=== PATIENT | male | born 1980 ===

== ENCOUNTER 2018-06-25 20:36 | Inpatient (IN) | payer OTHER ==
[2018-06-25 21:58] LABS: BASO # 0.1 K/uL (0.0-0.2); BASO % 0.8 % (0.0-2.0); EOS % 0.3 % (0.0-4.0); LYMPH # 2.8 K/uL (1.0-4.3); LYMPH % 30.7 % (20.0-40.0); MEAN CELL VOLUME 90.1 fL (80.0-94.0); MEAN CORPUSCULAR HGB CONC 35.6 g/dL (33.0-37.0); MEAN PLATELET VOLUME 9.2 fL (7.2-11.7); MONO # 0.5 K/uL (0.0-0.8); MONO % 5.2 % (0.0-10.0); NEUT # 5.7 K/uL (1.8-7.0); NRBC % 0.1 % (0.0-2.0); RBC 4.69 Mil/uL (4.40-5.90); RED CELL DISTRIBUTION WIDTH 12.9 % (11.5-14.5)
[2018-06-25 22:05] LABS: URINE BILIRUBIN NEGATIVE (NEGATIVE); URINE BLOOD NEGATIVE (NEGATIVE); URINE CLARITY Clear (Clear); URINE COLOR Amber (YELLOW); URINE GLUCOSE (UA) NORMAL (Normal); URINE LEUKOCYTE ESTERASE NEG Leu/uL (Negative); URINE PROTEIN NEGATIVE (NEGATIVE)
[2018-06-25 22:13] LABS: ALB/GLOB RATIO 1.2 (1.0-2.1); ALBUMIN 4.5 g/dL (3.5-5.0); ALT/SGPT 709 U/L (21-72); AST/SGOT 479 U/L (17-59); BLOOD UREA NITROGEN 11 mg/dL (9-20); CALCIUM 8.7 mg/dl (8.6-10.4); GFR NON-AFRICAN AMERICAN > 60
[2018-06-25 22:15] LABS: BARBITURATES, UR NEGATIVE (NEGATIVE); BENZODIAZEPINES, UR NEGATIVE (NEGATIVE); OPIATES, UR NEGATIVE (NEGATIVE); PHENCYCLIDINE, UR NEGATIVE (NEGATIVE)
--- NOTE | 2018-06-25 23:15 | C.PDOC ---
History Of Present Illness 37 year old male presents to the emergency department requesting detox from alcohol. Patient states that he last drank yesterday. He has no physical complaints at this time. Chief Complaint (Nursing): Substance Abuse History Per: Patient History/Exam Limitations: no limitations Onset/Duration Of Symptoms: Hrs Current Symptoms Are (Timing): Still Present Suicide/Self Injury Attempted (Context): None Modifying Factor(s): Alcohol Associated Symptoms: denies: Suicidal Thoughts, Suicidal Plan Past Medical History Reviewed: Historical Data, Nursing Documentation, Vital Signs Vital Signs: Last Vital Signs Temp 98.5 F 06/25/18 21:13 Pulse 92 H 06/25/18 21:13 Resp 16 06/25/18 21:13 BP 161/111 H 06/25/18 21:13 Pulse Ox 97 06/25/18 21:13 - Medical History PMH: Anxiety, Depression, HTN Surgical History: No Surg Hx Family History: States: No Known Family Hx - Social History Hx Alcohol Use: Yes Hx Substance Use: No - Immunization History Hx Tetanus Toxoid Vaccination: No Hx Influenza Vaccination: No Hx Pneumococcal Vaccination: No Review Of Systems Except As Marked, All Systems Reviewed And Found Negative. Constitutional: Negative for: Fever, Chills Respiratory: Negative for: Shortness of Breath Gastrointestinal: Negative for: Nausea, Vomiting, Abdominal Pain Physical Exam - Physical Exam Appears: Non-toxic, No Acute Distress Skin: Warm, Dry Head: Atraumatic, Normacephalic Eye(s): bilateral: Normal Inspection, PERRL, EOMI Oral Mucosa: Moist Neck: Normal, Supple Chest: Symmetrical, No Tenderness Cardiovascular: Rhythm Regular, No Murmur Respiratory: No Rales, No Rhonchi, No Wheezing Gastrointestinal/Abdominal: Soft, No Tenderness, No Guarding, No Rebound Neurological/Psych: Oriented x3, Normal Speech, Normal Cognition ED Course And Treatment - Laboratory Results Result Diagrams: 06/25/18 21:53 06/25/18 21:53 O2 Sat by Pulse Oximetry: 97 (RA) Pulse Ox Interpretation: Normal Progress Note: Plan: Alcohol Serum. CMP. Drug Screen. Magnesium. Phosphorus. CBC. Urinalysis. Patient is medically cleared for detox. Disposition - Disposition Disposition Time: 22:00 Condition: STABLE Forms: [employer] (Hungarian) - Clinical Impression Clinical Impression: Alcohol dependence - Scribe Statement The provider has reviewed the documentation as recorded by the Scribe (Kal Canales) Provider Attestation: All medical record entries made by the Scribe were at my direction and perso terrance dictated by me. I have reviewed the chart and agree that the record accurately reflects my personal performance of the history, physical exam, medical decision making, and the department course for this patient. I have also personally directed, reviewed, and agree with the discharge instructions and disposition.
--- NOTE | 2018-06-26 00:54 | PCM.BM ---
<Devendra Shipman - Last Filed: 06/26/18 00:53> Treatment Plan Problems - Problems identified on initial assessmt potential for alcohol withdrawal Date Initiated: 06/26/18 Time Initiated: 00:54 Assessment reference: NA Status: Active Treatment assets and liabiliti Patient Assests: adapts well, educated, self-reliant, ADL independent Patient Liabilities: substance abuse - Milieu Protocol Maintain good personal hygiene: daily Encourage regular showers, daily Remind patient to perform daily oral care, daily Assist patient to perform ADL's Maintain personal safety: every shift Educate patient to report safety concerns to staff, every shift Monitor environment for contraband/sharps Medication safety: Monitor for expected outcome, potential side effects: every shift, Assess barriers to learning: every shift, Assess readiness for medication education: every shift <Augustina Ramires - Last Filed: 06/26/18 10:56> - Diagnosis (1) Alcohol dependence Status: Acute Interventions: 06/26/18 10:56 * Assess 7x/week regarding severity of withdrawal * Educate regarding risks, benefits, side effects and alternatives of medications * Use Motivational Interviewing for abstinence * Use CBT for relapse prevention * Medication management for withdrawal symptoms * Encourage medication assisted treatment *
[2018-06-26] MEDS: Multiple Vitamins Tab PO SCH (09:48)
--- NOTE | 2018-06-26 10:56 | PCM.PSYCH ---
Initial Psychiatric Evaluation - Initial Psychiatric Evaluation Type of Admission: Voluntary Legal Status: Capacity Chief Complaint (in patient's own words): "I need to stop this once and for all" History of Present Illness and Precipitating Events: The patient is seen, chart reviewed and case discussed. 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 He lives with his mother in [place]. The patient is here for alcohol detox. He drinks 1 pint of vodka, plus couple of shots of fireball and 4-Locos (a strong beer) He decreased a little bit lately he states but he was afraid because he had DTs and seizures in the past. Most recent one was about 2 months ago. He denies drug use but smokes 10 cigarettes a day. He was in detox 4 times in the past and rehabilitation once or twice, one [facility]. Past psych history: He was diagnosed with major depression and generalized anxiety disorder and takes Lexapro 20 mg with no side effects. However he still has symptoms. He is not suicidal and he doesn't have humble or psychosis. Family psych history: Grandmother had alcoholism Medical history: He has high blood pressure and diabetes and he had been noncompliant with medications. Also, his liver enzymes are very elevated. Current Medications: Active Medications Generic Name Dose Route Start Last Admin Trade Name Freq PRN Reason Stop Dose Admin Amlodipine Besylate 10 mg 06/26/18 10:00 06/26/18 09:48 Norvasc PO 10 mg DAILY RAY Administration Clonidine HCl 0.1 mg 06/26/18 00:45 06/26/18 06:13 Catapres PO 0.1 mg Q4 PRN Administration alcohol withdrawal Folic Acid 1 mg 06/26/18 10:00 06/26/18 09:48 Folic Acid PO 1 mg DAILY RAY Administration Gabapentin 300 mg 06/26/18 10:00 06/26/18 09:48 Neurontin PO 300 mg BID RAY Administration Lorazepam 1 mg 06/26/18 00:49 06/26/18 06:13 Ativan PO 1 mg Q4 PRN Administration alcohol withdrawal Lorazepam 1 mg 06/26/18 10:00 Ativan PO 07/01/18 09:59 Q4 RAY Taper Metformin HCl 500 mg 06/26/18 10:00 06/26/18 09:48 Glucophage PO 500 mg BID RAY Administration Multivitamins 1 tab 06/26/18 10:00 06/26/18 09:48 Hexavitamin PO 1 tab DAILY RAY Administration Ondansetron HCl 4 mg 06/26/18 00:47 06/26/18 01:06 Zofran Tab PO 4 mg Q6 PRN Administration Nausea/Vomiting Thiamine HCl 100 mg 06/26/18 10:00 06/26/18 09:48 Vitamin B1 Tab PO 100 mg DAILY RAY Administration Trazodone HCl 50 mg 06/26/18 00:48 06/26/18 01:06 Desyrel PO 50 mg HS PRN Administration Insomnia Past Psychiatric History - Past Psychiatric History Previous Treatment History: Intensive Outpatient Pertinent Medical Hx (Current Medical&Sleep Prob, Allergies): Allergies Allergy/AdvReac Type Severity Reaction Status Date / Time No Known Allergies Allergy Verified 06/25/18 21:26 ARIPiprazole 10 mg PO DAILY 06/25/18 Benztropine Mesylate 1 mg PO DAILY 06/25/18 Lexapro 20 mg PO DAILY 06/25/18 Neurontin 600 mg PO TID 06/25/18 Norvasc 10 mg PO DAILY 06/25/18 metFORMIN [glucOPHAGE] 1,000 mg PO BID 06/25/18 Review of Systems - Neurological Neurological: Tremor - Psychiatric Psychiatric: Abnormal Sleep Pattern, Anxiety, Difficulty Concentrating. absent: Hallucinations, Homicidal Ideation, Paranoia, Suicidal Ideation Mental Status Examination - Personal Presentation Personal Presentation: Looks stated age - Affect Affect: Constricted - Motor Activity Motor Activity: Calm - Reliability in Providing Information Reliability in Providing Information: Good - Speech Speech: Organized - Mood Mood: Depressed, Anxious - Formal Thought Process Formal Thought Process: No Impairment - Cognitive Functions Orientation: Person, Place, Situation, Time Sensorium: Alert Attention/Concentration: Easily distracted Estimate of Intelligence: Average Judgement: Intact, as evidence by: Insight regarding need for hospitalization Memory: Recent intact, as evidence by: Ability to recall events of the day, Remote intact, as evidenced by: Abilit to recall sig. life events - Risk Risk: Withdrawal, Diminished functioning - Strength & Assets Inventory Strength & Assets Inventory: Cooperative - Limitations Limitations: Living alone DSM 5 DX - DSM 5 DSM 5 Diagnosis: Alcohol withdrawal Alcohol use d/o - severe Major depressive d/o - recurrent, severe TAJ DM HTN Elevated LFTs - Recommended/Plan of Treatment Treatment Recommendations and Plan of Treatment: Ativan detox As needed medications Continue lexapro for depression, add CBT Gabapentin for augmentation if needed All risks, benefits and alternatives of medications, including no medications, d iscussed and the patient understood and agreed. Attend groups and activities Supportive therapy and psychoeducation MT for abstinence CBT for relapse prevention Encourage MAT Refer to rehab or IOP Attend self-help groups as well MT for smoking cessation and patch if needed 34 min Projected ELOS: 5 days Prognosis: good w treatment - Smoking Cessation Smoking Cessation Initiated: Yes
[2018-06-27] MEDS: Multiple Vitamins Tab PO SCH (09:24)
--- NOTE | 2018-06-27 20:49 | PCM.PYCHPN ---
Psychiatric Progress Note - Psychiatric Progress Note Patient seen today, length of contact: 18 min Patient Chief Complaint: "I am anxious" Problems Identified/Issues Discussed: The pt is seen, chart reviewed, case discussed with staff. The pt is compliant with medications and reports no side-effects. Symptoms are improving but needs more time to stabilize. Pt attends groups and activities. Support given, psycho-education provided. After care discussed. Medication Change: Yes (detox changes daily) Medical Record Reviewed: Yes Mental Status Examination - Cognitive Function Orientation: Person, Place, Situation, Time Memory: Intact Attention: WNL Concentration: WNL Association: WNL Fund of Knowledge: WNL - Mood Mood: Depressed, Anxious - Affect Affect: Constricted - Speech Speech: Appropriate - Formal Thought Process Formal Thought Process: No Impairment - Suicidal Ideation Suicidal Ideation: No - Homicidal Ideation Homicidal Ideation: No Goal/Treatment Plan - Goal/Treatment Plan Need for Continued Stay: Discharge may exacerbated symptoms, Severe functional impairment Progress Toward Problem(s) and Goals/Treatment Plan: Ativan detox As needed medications Continue lexapro for depression, add CBT Zoloft may be used instead of lexapr due to LT use with mild benefits Gabapentin for augmentation if needed All risks, benefits and alternatives of medications, including no medications, discussed and the patient understood and agreed. Attend groups and activities Supportive therapy and psychoeducation PA for abstinence CBT for relapse prevention Encourage MAT Refer to rehab or IOP Attend self-help groups as well PA for smoking cessation and patch if needed
[2018-06-28] MEDS: Multiple Vitamins Tab PO SCH (09:07)
--- NOTE | 2018-06-28 23:11 | PCM.PYCHPN ---
Psychiatric Progress Note - Psychiatric Progress Note Patient seen today, length of contact: 18 min Patient Chief Complaint: "I am better" Problems Identified/Issues Discussed: The pt is seen, chart reviewed, case discussed with staff. The pt is compliant with medications and reports no side-effects. Symptoms are improving but needs more time to stabilize. After care discussed, support and psychoeducation given. Medication Change: Yes (detox changes daily, start zoloft) Medical Record Reviewed: Yes Mental Status Examination - Cognitive Function Orientation: Person, Place, Situation, Time Memory: Intact Attention: WNL Concentration: WNL Association: WNL Fund of Knowledge: WNL - Mood Mood: Depressed, Anxious - Affect Affect: Constricted - Speech Speech: Appropriate - Formal Thought Process Formal Thought Process: No Impairment - Suicidal Ideation Suicidal Ideation: No - Homicidal Ideation Homicidal Ideation: No Goal/Treatment Plan - Goal/Treatment Plan Need for Continued Stay: Discharge may exacerbated symptoms, Severe functional impairment Progress Toward Problem(s) and Goals/Treatment Plan: Ativan detox As needed medications Continue lexapro for depression, add CBT Zoloft may be used instead of lexapr due to LT use with mild benefits Gabapentin for augmentation if needed All risks, benefits and alternatives of medications, including no medications, discussed and the patient understood and agreed. Attend groups and activities Supportive therapy and psychoeducation CT for abstinence CBT for relapse prevention Encourage MAT Refer to rehab or IOP Attend self-help groups as well CT for smoking cessation and patch if needed
[2018-06-29 07:13] LABS: EOS # 0.2 K/uL (0.0-0.7); HEMOGLOBIN 13.1 g/dL (12.0-18.0); MONO # 0.4 K/uL (0.0-0.8); RED CELL DISTRIBUTION WIDTH 13.2 % (11.5-14.5); WHITE BLOOD COUNT 5.7 K/uL (4.8-10.8)
[2018-06-29 07:25] LABS: BASO % 0.6 % (0.0-2.0); EOS % 2.7 % (0.0-4.0); LYMPH # 2.4 K/uL (1.0-4.3); LYMPH % 42.4 % (20.0-40.0); MEAN CORPUSCULAR HEMOGLOBIN 32.4 pg (27.0-31.0); MEAN CORPUSCULAR HGB CONC 34.8 g/dL (33.0-37.0); MEAN PLATELET VOLUME 10.1 fL (7.2-11.7); MONO % 6.9 % (0.0-10.0); NEUT # 2.7 K/uL (1.8-7.0); NEUT % 47.4 % (50.0-75.0); RBC 4.04 Mil/uL (4.40-5.90)
[2018-06-29 08:31] LABS: ALB/GLOB RATIO 1.1 (1.0-2.1); ALBUMIN 3.7 g/dL (3.5-5.0); ALT/SGPT 195 U/L (21-72); AST/SGOT 60 U/L (17-59); BLOOD UREA NITROGEN 10 mg/dL (9-20); CALCIUM 8.9 mg/dl (8.6-10.4); GFR NON-AFRICAN AMERICAN > 60
[2018-06-29] MEDS: Multiple Vitamins Tab PO SCH (09:33)
--- NOTE | 2018-06-29 11:32 | PCM.PYCHPN ---
Psychiatric Progress Note - Psychiatric Progress Note Patient seen today, length of contact: 15 min Patient Chief Complaint: "I am better" Problems Identified/Issues Discussed: The pt is seen, chart reviewed, case discussed with staff. The pt is compliant with medications and reports no side-effects. Symptoms are improving but needs more time to stabilize. After care discussed, support and psychoeducation given. Medication Change: Yes (detox changes daily, start zoloft) Medical Record Reviewed: Yes Mental Status Examination - Cognitive Function Orientation: Person, Place, Situation, Time Memory: Intact Attention: WNL Concentration: WNL Association: WNL Fund of Knowledge: WNL - Mood Mood: Depressed, Anxious - Affect Affect: Constricted - Speech Speech: Appropriate - Formal Thought Process Formal Thought Process: No Impairment - Suicidal Ideation Suicidal Ideation: No - Homicidal Ideation Homicidal Ideation: No Goal/Treatment Plan - Goal/Treatment Plan Need for Continued Stay: Discharge may exacerbated symptoms, Severe functional impairment Progress Toward Problem(s) and Goals/Treatment Plan: Ativan detox As needed medications Continue lexapro for depression, add CBT Zoloft may be used instead of lexapr due to LT use with mild benefits Gabapentin for augmentation if needed All risks, benefits and alternatives of medications, including no medications, discussed and the patient understood and agreed. Attend groups and activities Supportive therapy and psychoeducation MT for abstinence CBT for relapse prevention Encourage MAT Refer to rehab or IOP Attend self-help groups as well MT for smoking cessation and patch if needed
[2018-06-29 13:28] VITALS: RESP 18
[2018-06-30 06:26] VITALS: TEMP 98.2
--- NOTE | 2018-06-30 08:47 | PCM.PYCHDC ---
Mental Status Examination - Mental Status Examination Orientation: Person, Place, Situation, Time Memory: Intact Mood: Anxious Affect: Broad Speech: Appropriate Attention: WNL Concentration: WNL Association: WNL Fund of Knowledge: WNL Formal Thought Process: No Impairment Suicidal Ideation: No Current Homicidal Ideation?: No Discharge Summary - Discharge Note Reason for Hospitalization: Alcohol detox Laboratory Data: Abnormal Lab Results 06/27/18 06/28/18 06/29/18 07:23 07:22 07:09 WBC 5.7 RBC 4.04 L Hgb 13.1 Hct 37.6 MCV 93.0 D MCH 32.4 H MCHC 34.8 RDW 13.2 Plt Count 78 L D MPV 10.1 Neut % (Auto) 47.4 L Lymph % (Auto) 42.4 H Perkins % (Auto) 6.9 Eos % (Auto) 2.7 Baso % (Auto) 0.6 Neut # (Auto) 2.7 Lymph # (Auto) 2.4 Perkins # (Auto) 0.4 Eos # (Auto) 0.2 Baso # (Auto) 0.0 Differential Comment POC Glucose (mg/dL) 158 H 143 H 06/29/18 06/30/18 07:40 07:24 WBC RBC Hgb Hct MCV MCH MCHC RDW Plt Count MPV Neut % (Auto) Lymph % (Auto) Perkins % (Auto) Eos % (Auto) Baso % (Auto) Neut # (Auto) Lymph # (Auto) Perkins # (Auto) Eos # (Auto) Baso # (Auto) Differential Comment POC Glucose (mg/dL) 138 H 146 H Consultations:: List each consultation separately and include: 1. Reason for request. 2. Findings. 3. Follow-up Summary of Hospital Course include:: 1. Description of specific treatment plan utilized for patients during their course of treatmen. 2. Summarize the time- course for resolution of acute symptoms and/or regressed behaviors. 3. Describe issues identified and worked on during hospitalization. 4. Describe medication utilized. 5. Describe medical problems identified and treated. 6. Reassessment of suicide risk Summary of Hospital Course: On Admission: The patient is seen, chart reviewed and case discussed. 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 He lives with his mother in [place]. The patient is here for alcohol detox. He drinks 1 pint of vodka, plus couple of shots of fireball and 4-Locos (a strong beer) He decreased a little bit lately he states but he was afraid because he had DTs and seizures in the past. Most recent one was about 2 months ago. He denies drug use but smokes 10 cigarettes a day. He was in detox 4 times in the past and rehabilitation once or twice, one was long-term at [facility]. Past psych history: He was diagnosed with major depression and generalized anxiety disorder and takes Lexapro 20 mg with no side effects. However he still has symptoms. He is not suicidal and he doesn't have humble or psychosis. Family psych history: Grandmother had alcoholism Medical history: He has high blood pressure and diabetes and he had been noncompliant with medications. Also, his liver enzymes are very elevated. Hospital course: The pt was admitted and started on treatment with psychotherapy, support, psychoeducation and medications. NE and CBT used. The pt attended groups and activities, as well as milieu therapy. All the risks and benefits of medications are discussed and the patient understood and agreed. The pt improved with the treatments provided. After care discussed with the patient. The patient went to [facility] but will also stay in a sober living house. - Final Diagnosis (DSM 5) Condition upon Discharge: STABLE DSM 5: Alcohol withdrawal Alcohol use d/o - severe Major depressive d/o - recurrent, severe TAJ DM HTN Elevated LFTs Disposition: HOME/ ROUTINE Follow-up Treatment Plan: Continue below medications after discharge. Follow after care plan as discussed. Use relapse prevention skills Return to ER or call 911 if suicidal, homicidal or symptoms relapse. Stay away from stress, alcohol and drugs. See primary doctor regularly and get labs. Prescriptions/Medication Reconciliation: amLODIPine [Norvasc] 10 mg PO DAILY #30 tab Gabapentin [Neurontin] 300 mg PO BID #60 cap metFORMIN [glucOPHAGE] 500 mg PO TID #90 tab Nicotine 14 mg/24 hr [Nicoderm CQ] 1 patch TD DAILY #14 patch Nicotine 21 mg/24 hr [Nicoderm Cq] 1 patch TD DAILY #14 patch Sertraline [Zoloft] 100 mg PO DAILY #30 tab traZODone [Desyrel] 100 mg PO HS PRN #30 tab PRN Reason: Insomnia
[2018-06-30] MEDS: Multiple Vitamins Tab PO SCH (09:13)
[2018-06-30 09:35] VITALS: BP 125/90; PULSE 78; O2SAT 98
== END 2018-06-30 09:37 | disposition home or self-care (01) | DRG 750 ==
LOC: C.ER 20:36 → C.7D 23:48
PROVIDERS: ADMIT Psychiatry & Neurology Psychiatry; ATTEND Psychiatry & Neurology Psychiatry
PROC: HZ2ZZZZ Detoxification Services for Substance Abuse Treatment (ICD-10-PCS; principal; 2018-06-25)
PROC: HZ59ZZZ Individual Psychotherapy for Substance Abuse Treatment, Supportive (ICD-10-PCS; 2018-06-25)
PROC: GZ3ZZZZ Medication Management (ICD-10-PCS; 2018-06-25)
PROC: HZ80ZZZ Medication Management for Substance Abuse Treatment, Nicotine Replacement (ICD-10-PCS; 2018-06-25)
PROC: HZ46ZZZ Group Counseling for Substance Abuse Treatment, Psychoeducation (ICD-10-PCS; 2018-06-25)
DX: F10.230 Alcohol dependence with withdrawal, uncomplicated (principal); F33.2 Major depressive disorder, recurrent severe without psychotic features; F41.1 Generalized anxiety disorder; F17.210 Nicotine dependence, cigarettes, uncomplicated; E11.9 Type 2 diabetes mellitus without complications; I10 Essential (primary) hypertension; Z91.14 Patient's other noncompliance with medication regimen